=== PATIENT | female | born 1970 | race Two or more races ===

== ENCOUNTER 2020-08-16 09:50 | Day surgery (SDC) | payer OTHER | END 2020-08-16 16:30 | disposition home or self-care (01) | LOC: CIR.AMB 09:50 | PROVIDERS: ATTEND Colon & Rectal Surgery | DX: L29.0 Pruritus ani (principal); L28.0 Lichen simplex chronicus; K64.1 Second degree hemorrhoids; Z20.828 Contact with and (suspected) exposure to other viral communicable diseases ==